=== PATIENT | male | born 1935 | race Caucasian/White ===

== ENCOUNTER 2018-11-12 14:40 | Inpatient (IN) | payer MEDICARE, OTHER ==
[~2018-11-12] VITALS: Ht 167.6 cm; Wt 59.0 kg
[~2018-11-12 14:40] MED LIST: ASPIRIN81 MG PO; EQ OMEPRAZOLE20 MG PO; LIPITOR10 M1 PO; LOPRESSOR25 M1 PO; PROSCAR5 MG PO; REMERON7.5 MG PO
[2018-11-12 15:44] LABS: HEMATOCRIT 32.2 % (39.0-50.0); HEMOGLOBIN 10.3 g/dl (14.0-18.0); IMMATURE GRANULOCYTES 0.4 % (0.0-5.0); MEAN CELL VOLUME 96.1 fL CALC (80.0-100.0); MEAN CORPUSCULAR HGB 30.7 pG CALC (26.0-32.0); NEUT# 4.31 thou/uL (1.82-7.42); RED BLOOD COUNT 3.35 mill/uL (4.70-6.10)
[2018-11-12 15:55] LABS: BILIRUBIN, TOTAL 0.7 mg/dL (0.0-1.4); CREATININE 2.1 mg/dL (0.7-1.3); POTASSIUM 4.8 mmol/l (3.5-5.1)
[2018-11-12] MEDS ORDERED: CARAFATE PO (17:42)
[2018-11-12] MEDS ORDERED: TYLENOL325 MG PO (17:51)
[2018-11-12] MEDS ORDERED: TUMS500 MG PO (17:51)
[2018-11-12 18:35] VITALS: BP 140/70
[2018-11-12 20:26] VITALS: BP 146/69
[2018-11-12 23:52] LABS: URINE BILIRUBIN - DIPSTICK NEGATIVE (NEGATIVE); URINE BLOOD DIPSTICK TRACE-INTACT (NEGATIVE); URINE COLOR YELLOW; URINE GLUCOSE - DIPSTICK NEGATIVE (NEGATIVE); URINE KETONE NEGATIVE (NEGATIVE); URINE NITRITE - DIPSTICK NEGATIVE (Negative); URINE PH 5.5 (4.5-8.0); URINE PROTEIN - DIPSTICK TRACE mg/dL (NEG-TRACE); URINE UROBILINOGEN - DIPSTICK 0.2 E.U./dL (0.2)
[2018-11-12 23:53] LABS: URINE LEUK ESTERASE MODERATE (NEGATIVE)
[2018-11-12 23:54] LABS: URINE BACTERIA FEW hpf; URINE EPITHELIAL CELLS MANY EPI/hpf (0-FEW); URINE RBC 0-2 RBC/hpf (0-5)
[2018-11-13] VITALS (7 sets, daily range): BP systolic 95–123; BP diastolic 45–74
[2018-11-13 08:25] LABS: HEMATOCRIT 29.3 % (39.0-50.0); HEMOGLOBIN 9.4 g/dl (14.0-18.0); IMMATURE GRANULOCYTES 0.3 % (0.0-5.0); MEAN CELL VOLUME 96.1 fL CALC (80.0-100.0); MEAN CORPUSCULAR HGB 30.8 pG CALC (26.0-32.0); MEAN CORPUSCULAR HGB CONC 32.1 g/L CALC (32.0-36.0); NEUT# 4.61 thou/uL (1.82-7.42); RED BLOOD COUNT 3.05 mill/uL (4.70-6.10); RED CELL DISTRI WIDTH 17.3 % (11.5-15.5)
[2018-11-13 08:49] LABS: ALBUMIN 2.5 g/dL (3.2-5.0); BILIRUBIN, TOTAL 0.8 mg/dL (0.0-1.4); CREATININE 2.1 mg/dL (0.7-1.3); MAGNESIUM 1.5 mg/dL (1.6-2.3); POTASSIUM 4.4 mmol/l (3.5-5.1); TOTAL PROTEIN 5.4 g/dL (6.3-8.2)
[2018-11-14 03:45] VITALS: BP 134/64
[2018-11-14 09:27] VITALS: BP 126/61
[2018-11-14 11:08] VITALS: BP 120/57
[2018-11-14 16:24] VITALS: BP 120/66
[2018-11-14 19:26] VITALS: BP 129/64
[2018-11-15] VITALS (12 sets, daily range): BP systolic 116–179; BP diastolic 62–87
[2018-11-15 07:12] LABS: HEMATOCRIT 29.3 % (39.0-50.0); HEMOGLOBIN 9.5 g/dl (14.0-18.0); IMMATURE GRANULOCYTES 0.3 % (0.0-5.0); MEAN CELL VOLUME 96.7 fL CALC (80.0-100.0); MEAN CORPUSCULAR HGB 31.4 pG CALC (26.0-32.0); MEAN CORPUSCULAR HGB CONC 32.4 g/L CALC (32.0-36.0); NEUT# 3.68 thou/uL (1.82-7.42); RED BLOOD COUNT 3.03 mill/uL (4.70-6.10); RED CELL DISTRI WIDTH 16.6 % (11.5-15.5)
[2018-11-15 07:22] LABS: ALBUMIN 2.5 g/dL (3.2-5.0); CREATININE 2.2 mg/dL (0.7-1.3); POTASSIUM 4.4 mmol/l (3.5-5.1); TOTAL PROTEIN 5.4 g/dL (6.3-8.2)
[2018-11-15 07:24] LABS: BILIRUBIN, TOTAL 0.4 mg/dL (0.0-1.4)
[2018-11-16 00:15] VITALS: BP 136/57
[2018-11-16 04:19] VITALS: BP 155/72
[2018-11-16 08:15] VITALS: BP 163/77
[2018-11-16 10:33] LABS: HEMOGLOBIN 10.1 g/dl (14.0-18.0); IMMATURE GRANULOCYTES 0.5 % (0.0-5.0); MEAN CELL VOLUME 97.3 fL CALC (80.0-100.0); MEAN CORPUSCULAR HGB 30.7 pG CALC (26.0-32.0); MEAN CORPUSCULAR HGB CONC 31.6 g/L CALC (32.0-36.0); NEUT# 3.77 thou/uL (1.82-7.42); RED BLOOD COUNT 3.29 mill/uL (4.70-6.10); RED CELL DISTRI WIDTH 16.2 % (11.5-15.5)
[2018-11-16 10:55] LABS: CREATININE 1.9 mg/dL (0.7-1.3); POTASSIUM 4.3 mmol/l (3.5-5.1)
[2018-11-16 11:26] VITALS: BP 164/75
[2018-11-16 15:10] VITALS: BP 133/58
[2018-11-16 19:10] VITALS: BP 124/62
[2018-11-17] VITALS (9 sets, daily range): BP systolic 128–148; BP diastolic 59–80
[2018-11-17 05:47] LABS: HEMATOCRIT 27.4 % (39.0-50.0); HEMOGLOBIN 8.9 g/dl (14.0-18.0); IMMATURE GRANULOCYTES 0.2 % (0.0-5.0); MEAN CELL VOLUME 95.5 fL CALC (80.0-100.0); MEAN CORPUSCULAR HGB CONC 32.5 g/L CALC (32.0-36.0); NEUT# 2.41 thou/uL (1.82-7.42); RED BLOOD COUNT 2.87 mill/uL (4.70-6.10); RED CELL DISTRI WIDTH 16.2 % (11.5-15.5)
[2018-11-17 05:58] LABS: ALBUMIN 2.5 g/dL (3.2-5.0); BILIRUBIN, TOTAL 0.3 mg/dL (0.0-1.4); POTASSIUM 3.9 mmol/l (3.5-5.1); TOTAL PROTEIN 5.3 g/dL (6.3-8.2)
[2018-11-18] VITALS (7 sets, daily range): BP systolic 138–178; BP diastolic 62–90
[2018-11-18 06:20] LABS: IMMATURE GRANULOCYTES 0.2 % (0.0-5.0); MEAN CELL VOLUME 91.3 fL CALC (80.0-100.0); MEAN CORPUSCULAR HGB 29.8 pG CALC (26.0-32.0); MEAN CORPUSCULAR HGB CONC 32.7 g/L CALC (32.0-36.0); NEUT# 2.81 thou/uL (1.82-7.42); RED BLOOD COUNT 3.92 mill/uL (4.70-6.10); RED CELL DISTRI WIDTH 17.9 % (11.5-15.5)
[2018-11-18 06:26] LABS: HEMATOCRIT 35.8 % (39.0-50.0); HEMOGLOBIN 11.7 g/dl (14.0-18.0)
[2018-11-18 06:28] LABS: POTASSIUM 3.7 mmol/l (3.5-5.1)
[2018-11-19] VITALS (9 sets, daily range): BP systolic 139–170; BP diastolic 70–87
[2018-11-19 05:43] LABS: HEMATOCRIT 36.3 % (39.0-50.0); HEMOGLOBIN 11.9 g/dl (14.0-18.0); IMMATURE GRANULOCYTES 0.2 % (0.0-5.0); MEAN CELL VOLUME 92.1 fL CALC (80.0-100.0); MEAN CORPUSCULAR HGB 30.2 pG CALC (26.0-32.0); MEAN CORPUSCULAR HGB CONC 32.8 g/L CALC (32.0-36.0); NEUT# 2.67 thou/uL (1.82-7.42); RED BLOOD COUNT 3.94 mill/uL (4.70-6.10); RED CELL DISTRI WIDTH 17.2 % (11.5-15.5)
[2018-11-19 06:10] LABS: ALBUMIN 2.8 g/dL (3.2-5.0); BILIRUBIN, TOTAL 0.4 mg/dL (0.0-1.4); CREATININE 1.9 mg/dL (0.7-1.3); POTASSIUM 3.8 mmol/l (3.5-5.1); TOTAL PROTEIN 5.9 g/dL (6.3-8.2)
[2018-11-20] VITALS (9 sets, daily range): BP systolic 124–171; BP diastolic 59–80
[2018-11-20] MEDS ORDERED: ROCEPHIN 2 GM2 GM IV (17:51)
== END 2018-11-20 19:37 | disposition home health service (06) | DRG 464 ==
LOC: ED 14:40 → ED-I 16:04 → ED 16:38 → MS2 16:39
PROVIDERS: ADMIT Internal Medicine Nephrology; ATTEND Internal Medicine Geriatric Medicine
PROC: 05H933Z Insertion of Infusion Device into Right Brachial Vein, Percutaneous Approach (ICD-10-PCS; 2018-11-14)
PROC: B54MZZA Ultrasonography of Right Upper Extremity Veins, Guidance (ICD-10-PCS; 2018-11-14)
PROC: 0QBP0ZZ Excision of Left Metatarsal, Open Approach (ICD-10-PCS; principal; 2018-11-15)
PROC: 0JBR0ZZ Excision of Left Foot Subcutaneous Tissue and Fascia, Open Approach (ICD-10-PCS; 2018-11-15)
PROC: 30233N1 Transfusion of Nonautologous Red Blood Cells into Peripheral Vein, Percutaneous Approach (ICD-10-PCS; 2018-11-17)
PROC: 30233N1 Transfusion of Nonautologous Red Blood Cells into Peripheral Vein, Percutaneous Approach (ICD-10-PCS; 2018-11-17)
DX: T87.44 Infection of amputation stump, left lower extremity (principal); L03.116 Cellulitis of left lower limb; E11.52 Type 2 diabetes mellitus with diabetic peripheral angiopathy with gangrene; I96 Gangrene, not elsewhere classified; C79.51 Secondary malignant neoplasm of bone; I12.9 Hypertensive chronic kidney disease with stage 1 through stage 4 chronic kidney disease, or unspecified chronic kidney disease; E11.22 Type 2 diabetes mellitus with diabetic chronic kidney disease; N18.3 Chronic kidney disease, stage 3 (moderate); E13.21 Other specified diabetes mellitus with diabetic nephropathy; D46.9 Myelodysplastic syndrome, unspecified; I25.10 Atherosclerotic heart disease of native coronary artery without angina pectoris; J44.9 Chronic obstructive pulmonary disease, unspecified; D64.9 Anemia, unspecified; M19.90 Unspecified osteoarthritis, unspecified site; C61 Malignant neoplasm of prostate; F03.90 Unspecified dementia, unspecified severity, without behavioral disturbance, psychotic disturbance, mood disturbance, and anxiety; B96.89 Other specified bacterial agents as the cause of diseases classified elsewhere; Y83.5 Amputation of limb(s) as the cause of abnormal reaction of the patient, or of later complication, without mention of misadventure at the time of the procedure; Z95.828 Presence of other vascular implants and grafts; Z86.73 Personal history of transient ischemic attack (TIA), and cerebral infarction without residual deficits; Z95.1 Presence of aortocoronary bypass graft; Z92.3 Personal history of irradiation
CPT/HCPCS: G0378; P9016

== ENCOUNTER 2019-01-10 06:11 | Day surgery (SDC) | payer MEDICARE, OTHER ==
[~2019-01-10] VITALS: Ht 167.6 cm; Wt 58.1 kg
[~2019-01-10 06:11] MED LIST changes: +CARAFATE PO; +FLUTAMIDE125 MG PO; +ROCEPHIN 2 GM2 GM IV; +TUMS500 MG PO; +TYLENOL325 MG PO
[2019-01-10 07:07] LABS: HEMATOCRIT 28.4 % (39.0-50.0); HEMOGLOBIN 8.5 g/dl (14.0-18.0); IMMATURE GRANULOCYTES 0.6 % (0.0-5.0); MEAN CELL VOLUME 100.4 fL CALC (80.0-100.0); MEAN CORPUSCULAR HGB CONC 29.9 g/L CALC (32.0-36.0); NEUT# 4.39 thou/uL (1.82-7.42); RED BLOOD COUNT 2.83 mill/uL (4.70-6.10); RED CELL DISTRI WIDTH 17.5 % (11.5-15.5)
[2019-01-10 09:17] VITALS: BP 140/66
[2019-01-10] MEDS ORDERED: PERCOCET 10/31 COMBO PO (09:44)
[2019-01-10] MEDS ORDERED: BACTRIM DS1 TAB PO (09:44)
== END 2019-01-10 09:54 | disposition home or self-care (01) ==
LOC: ORM 06:11
PROVIDERS: ATTEND Urology
PROC: 0TCB8ZZ Extirpation of Matter from Bladder, Via Natural or Artificial Opening Endoscopic (ICD-10-PCS; principal; 2019-01-10)
PROC: 0VB08ZZ Excision of Prostate, Via Natural or Artificial Opening Endoscopic (ICD-10-PCS; 2019-01-10)
DX: N40.1 Benign prostatic hyperplasia with lower urinary tract symptoms (principal); R33.8 Other retention of urine; N13.8 Other obstructive and reflux uropathy; N21.0 Calculus in bladder; I25.10 Atherosclerotic heart disease of native coronary artery without angina pectoris; I12.9 Hypertensive chronic kidney disease with stage 1 through stage 4 chronic kidney disease, or unspecified chronic kidney disease; N18.9 Chronic kidney disease, unspecified; C61 Malignant neoplasm of prostate; C79.51 Secondary malignant neoplasm of bone; Z95.1 Presence of aortocoronary bypass graft

== ENCOUNTER 2019-01-13 13:46 | Observation (INO) | payer MEDICARE, OTHER ==
[2019-01-13] VITALS (10 sets, daily range): BP systolic 124–166; BP diastolic 65–82
[~2019-01-13] VITALS: Ht 170.2 cm; Wt 56.2 kg
[~2019-01-13 13:46] MED LIST changes: +BACTRIM DS1 TAB PO; +PERCOCET 10/31 COMBO PO
[2019-01-13 17:06] LABS: URINE BILIRUBIN - DIPSTICK NEGATIVE (NEGATIVE); URINE BLOOD DIPSTICK LARGE (NEGATIVE); URINE COLOR YELLOW; URINE GLUCOSE - DIPSTICK NEGATIVE (NEGATIVE); URINE KETONE NEGATIVE (NEGATIVE); URINE LEUK ESTERASE SMALL (Negative); URINE NITRITE - DIPSTICK NEGATIVE (Negative); URINE PROTEIN - DIPSTICK 30 mg/dL (NEG-TRACE); URINE UROBILINOGEN - DIPSTICK 0.2 E.U./dL (0.2)
[2019-01-13 17:08] LABS: URINE CLARITY SL CLOUDY
[2019-01-13 17:25] LABS: URINE RBC 25-50 RBC/hpf (0-5)
[2019-01-14 03:30] VITALS: BP 134/61
[2019-01-14 05:39] LABS: HEMATOCRIT 31.1 % (39.0-50.0)
[2019-01-14 05:55] LABS: ALBUMIN 3.1 g/dL (3.2-5.0); BILIRUBIN, TOTAL 0.4 mg/dL (0.0-1.4); CREATININE 2.9 mg/dL (0.7-1.3); TOTAL PROTEIN 6.3 g/dL (6.3-8.2)
[2019-01-14 06:05] LABS: POTASSIUM 5.4 mmol/l (3.5-5.1)
[2019-01-14 07:31] VITALS: BP 152/67
[2019-01-14 14:55] VITALS: BP 125/64
== END 2019-01-14 14:45 | disposition home health service (06) ==
LOC: MS2 13:46
PROVIDERS: ADMIT Internal Medicine Geriatric Medicine; ATTEND Internal Medicine Geriatric Medicine
PROC: 30233N1 Transfusion of Nonautologous Red Blood Cells into Peripheral Vein, Percutaneous Approach (ICD-10-PCS; principal; 2019-01-13)
PROC: 30233N1 Transfusion of Nonautologous Red Blood Cells into Peripheral Vein, Percutaneous Approach (ICD-10-PCS; 2019-01-13)
PROC: 0T9B70Z Drainage of Bladder with Drainage Device, Via Natural or Artificial Opening (ICD-10-PCS; 2019-01-13)
DX: D64.9 Anemia, unspecified (principal); D46.9 Myelodysplastic syndrome, unspecified; C61 Malignant neoplasm of prostate; C79.51 Secondary malignant neoplasm of bone; I25.10 Atherosclerotic heart disease of native coronary artery without angina pectoris; I73.9 Peripheral vascular disease, unspecified; I12.9 Hypertensive chronic kidney disease with stage 1 through stage 4 chronic kidney disease, or unspecified chronic kidney disease; N18.9 Chronic kidney disease, unspecified; J44.9 Chronic obstructive pulmonary disease, unspecified; F03.90 Unspecified dementia, unspecified severity, without behavioral disturbance, psychotic disturbance, mood disturbance, and anxiety; Z95.828 Presence of other vascular implants and grafts; Z95.1 Presence of aortocoronary bypass graft; Z89.422 Acquired absence of other left toe(s); Z86.73 Personal history of transient ischemic attack (TIA), and cerebral infarction without residual deficits
CPT/HCPCS: A9503; P9016

== ENCOUNTER 2019-02-17 14:35 | Observation (INO) | payer MEDICARE, OTHER ==
[~2019-02-17] VITALS: Ht 167.6 cm; Wt 56.2 kg
[2019-02-17 16:50] LABS: URINE BILIRUBIN - DIPSTICK NEGATIVE (NEGATIVE); URINE BLOOD DIPSTICK LARGE (NEGATIVE); URINE COLOR YELLOW; URINE GLUCOSE - DIPSTICK NEGATIVE (NEGATIVE); URINE KETONE NEGATIVE (NEGATIVE); URINE NITRITE - DIPSTICK NEGATIVE (Negative); URINE PH 5.5 (4.5-8.0); URINE PROTEIN - DIPSTICK 100 mg/dL (NEG-TRACE); URINE SPECIFIC GRAVITY >=1.030; URINE UROBILINOGEN - DIPSTICK 0.2 E.U./dL (0.2)
[2019-02-17 16:53] LABS: ALBUMIN 3.7 g/dL (3.2-5.0); BILIRUBIN, TOTAL 0.3 mg/dL (0.0-1.4); CREATININE 4.9 mg/dL (0.7-1.3)
[2019-02-17 16:55] LABS: URINE LEUK ESTERASE MODERATE (NEGATIVE)
[2019-02-17 16:56] LABS: URINE WBC 50-100 WBC/hpf (0-5)
[2019-02-17 16:59] LABS: POTASSIUM 5.9 mmol/l (3.5-5.1)
[2019-02-17] MEDS ORDERED: ASPIRIN81 MG PO (17:16)
[2019-02-17] MEDS ORDERED: LIPITOR10 M1 PO (17:16)
[2019-02-17] MEDS ORDERED: REMERON15 MG PO (17:17)
[2019-02-17] MEDS ORDERED: OMEPRAZOLE20 M2 PO (17:17)
[2019-02-17] MEDS ORDERED: PROSCAR5 MG PO (17:17)
[2019-02-17] MEDS ORDERED: METOPROL TAR25 M1 PO (17:18)
[2019-02-17] MEDS ORDERED: CARAFATE1 GM PO (17:18)
[2019-02-17] MEDS ORDERED: DRONABINOL5 MG PO ×2 (17:19→20:36)
[2019-02-17 19:15] VITALS: BP 168/72
[2019-02-17] MEDS ORDERED: PREDNISONE5 MG PO (20:39)
[2019-02-17] MEDS ORDERED: [UNRECOGNIZED DRUG - OTHER] PO (20:39)
[2019-02-17 21:15] VITALS: BP 135/58
[2019-02-17 21:34] LABS: CREATININE 4.8 mg/dL (0.7-1.3)
[2019-02-17 21:35] LABS: POTASSIUM 5.6 mmol/l (3.5-5.1)
[2019-02-17 23:30] VITALS: BP 136/68
[2019-02-18] VITALS (8 sets, daily range): BP systolic 94–160; BP diastolic 44–72
[2019-02-18] MEDS ORDERED: ACETAMINOP160 MG/5 M PO (04:40)
[2019-02-18 05:21] LABS: HEMATOCRIT 22.6 % (39.0-50.0); HEMOGLOBIN 7.1 g/dl (14.0-18.0); MEAN CORPUSCULAR HGB 31.4 pG CALC (26.0-32.0); MEAN CORPUSCULAR HGB CONC 31.4 g/L CALC (32.0-36.0); RED BLOOD COUNT 2.26 mill/uL (4.70-6.10); RED CELL DISTRI WIDTH 16.6 % (11.5-15.5)
[2019-02-18 05:24] LABS: CREATININE 4.4 mg/dL (0.7-1.3); POTASSIUM 4.7 mmol/l (3.5-5.1)
[2019-02-19] VITALS (7 sets, daily range): BP systolic 98–150; BP diastolic 44–74
[2019-02-19 05:16] LABS: HEMATOCRIT 24.2 % (39.0-50.0); HEMOGLOBIN 7.9 g/dl (14.0-18.0); MEAN CELL VOLUME 94.9 fL CALC (80.0-100.0); MEAN CORPUSCULAR HGB CONC 32.6 g/L CALC (32.0-36.0); RED BLOOD COUNT 2.55 mill/uL (4.70-6.10); RED CELL DISTRI WIDTH 18.8 % (11.5-15.5)
[2019-02-19 05:31] LABS: CREATININE 4.4 mg/dL (0.7-1.3); POTASSIUM 4.7 mmol/l (3.5-5.1)
[2019-02-20] VITALS (9 sets, daily range): BP systolic 127–183; BP diastolic 61–83
[2019-02-20 05:25] LABS: HEMATOCRIT 26.3 % (39.0-50.0); HEMOGLOBIN 8.6 g/dl (14.0-18.0); IMMATURE GRANULOCYTES 0.6 % (0.0-5.0); MEAN CELL VOLUME 94.9 fL CALC (80.0-100.0); MEAN CORPUSCULAR HGB CONC 32.7 g/L CALC (32.0-36.0); NEUT# 6.08 thou/uL (1.82-7.42); RED BLOOD COUNT 2.77 mill/uL (4.70-6.10); RED CELL DISTRI WIDTH 17.8 % (11.5-15.5)
[2019-02-20 05:43] LABS: CREATININE 3.7 mg/dL (0.7-1.3); MAGNESIUM 1.7 mg/dL (1.6-2.3); POTASSIUM 3.9 mmol/l (3.5-5.1)
[2019-02-21 04:27] VITALS: BP 150/70
[2019-02-21 05:41] LABS: HEMATOCRIT 29.3 % (39.0-50.0); HEMOGLOBIN 9.6 g/dl (14.0-18.0)
[2019-02-21 06:04] LABS: CREATININE 3.5 mg/dL (0.7-1.3); MAGNESIUM 1.5 mg/dL (1.6-2.3); POTASSIUM 4.1 mmol/l (3.5-5.1)
[2019-02-21 06:05] LABS: ALBUMIN 3.1 g/dL (3.2-5.0); CREATININE 3.5 mg/dL (0.7-1.3); POTASSIUM 4.1 mmol/l (3.5-5.1)
[2019-02-21 07:00] VITALS: BP 159/71
[2019-02-21 10:59] VITALS: BP 127/59
[2019-02-21] MEDS ORDERED: SODIUM BICARBI650 MG PO (11:40)
[2019-02-21] MEDS ORDERED: CIPROFLOXACN500 MG PO (11:44)
== END 2019-02-21 13:55 ==
LOC: ED 14:35 → ED-I 15:58 → ED 16:11 → ICU 16:12 → MS2 02-19 05:20
PROVIDERS: Internal Medicine Nephrology; Nurse Practitioner Family; ADMIT Internal Medicine; ATTEND Internal Medicine
PROC: 0T9B70Z Drainage of Bladder with Drainage Device, Via Natural or Artificial Opening (ICD-10-PCS; principal; 2019-02-17)
PROC: 30233N1 Transfusion of Nonautologous Red Blood Cells into Peripheral Vein, Percutaneous Approach (ICD-10-PCS; 2019-02-18)
PROC: 3E02340 Introduction of Influenza Vaccine into Muscle, Percutaneous Approach (ICD-10-PCS; 2019-02-19)
DX: N17.9 Acute kidney failure, unspecified (principal); E86.0 Dehydration; E87.5 Hyperkalemia; N39.0 Urinary tract infection, site not specified; I13.0 Hypertensive heart and chronic kidney disease with heart failure and stage 1 through stage 4 chronic kidney disease, or unspecified chronic kidney disease; N18.4 Chronic kidney disease, stage 4 (severe); I50.9 Heart failure, unspecified; C61 Malignant neoplasm of prostate; C79.51 Secondary malignant neoplasm of bone; E87.2 Acidosis; I25.10 Atherosclerotic heart disease of native coronary artery without angina pectoris; F03.90 Unspecified dementia, unspecified severity, without behavioral disturbance, psychotic disturbance, mood disturbance, and anxiety; E46 Unspecified protein-calorie malnutrition; L97.528 Non-pressure chronic ulcer of other part of left foot with other specified severity; E78.5 Hyperlipidemia, unspecified; D46.9 Myelodysplastic syndrome, unspecified; R00.1 Bradycardia, unspecified; I73.9 Peripheral vascular disease, unspecified; D63.1 Anemia in chronic kidney disease; D64.81 Anemia due to antineoplastic chemotherapy; T45.1X5A Adverse effect of antineoplastic and immunosuppressive drugs, initial encounter; B96.5 Pseudomonas (aeruginosa) (mallei) (pseudomallei) as the cause of diseases classified elsewhere; Z68.1 Body mass index [BMI] 19.9 or less, adult; Z89.422 Acquired absence of other left toe(s); Z95.1 Presence of aortocoronary bypass graft; Z86.73 Personal history of transient ischemic attack (TIA), and cerebral infarction without residual deficits; Z95.828 Presence of other vascular implants and grafts; Z79.899 Other long term (current) drug therapy; Z23 Encounter for immunization
CPT/HCPCS: J0692; J3475; P9016

== ENCOUNTER 2019-03-07 17:30 | Inpatient (IN) | payer MEDICARE, OTHER ==
[~2019-03-07] VITALS: Ht 167.6 cm; Wt 59.9 kg
[~2019-03-07 17:30] MED LIST changes: +ACETAMINOP160 MG/5 M PO; +CARAFATE1 GM PO; +CIPROFLOXACN500 MG PO; +DRONABINOL5 MG PO; +METOPROL TAR25 M1 PO; +OMEPRAZOLE20 M2 PO; +PREDNISONE5 MG PO; +REMERON15 MG PO; +SODIUM BICARBI650 MG PO; +[UNRECOGNIZED DRUG - OTHER] PO
[2019-03-07 18:16] LABS: IMMATURE GRANULOCYTES 0.2 % (0.0-5.0); MEAN CELL VOLUME 100.5 fL CALC (80.0-100.0); MEAN CORPUSCULAR HGB 31.6 pG CALC (26.0-32.0); MEAN CORPUSCULAR HGB CONC 31.4 g/L CALC (32.0-36.0); NEUT# 3.18 thou/uL (1.82-7.42); RED BLOOD COUNT 2.09 mill/uL (4.70-6.10); RED CELL DISTRI WIDTH 16.9 % (11.5-15.5)
[2019-03-07 18:19] LABS: HEMOGLOBIN 6.6 g/dl (14.0-18.0)
[2019-03-07 18:32] LABS: ACT PARTIAL THROMBO TIME 26.5 SECONDS (20.0-32.5); PROTHROMBIN TIME 10.3 SECONDS (9.0-12.5)
[2019-03-07 18:45] LABS: ALBUMIN 3.3 g/dL (3.2-5.0); BILIRUBIN, TOTAL 0.2 mg/dL (0.0-1.4); TOTAL PROTEIN 6.5 g/dL (6.3-8.2)
[2019-03-07 18:52] LABS: CREATININE 5.4 mg/dL (0.7-1.3); POTASSIUM 5.4 mmol/l (3.5-5.1)
[2019-03-07 19:55] VITALS: BP 149/67
[2019-03-07 20:31] VITALS: BP 146/65
[2019-03-07 20:50] VITALS: BP 153/59
[2019-03-07 21:16] VITALS: BP 147/64
[2019-03-07 23:27] VITALS: BP 152/71
[2019-03-07 23:45] VITALS: BP 135/71
[2019-03-08] VITALS (9 sets, daily range): BP systolic 134–162; BP diastolic 57–85
[2019-03-08 05:54] LABS: ALBUMIN 3.2 g/dL (3.2-5.0); POTASSIUM 5.1 mmol/l (3.5-5.1); TOTAL PROTEIN 6.3 g/dL (6.3-8.2)
[2019-03-08 06:11] LABS: BILIRUBIN, TOTAL 0.4 mg/dL (0.0-1.4)
[2019-03-08 06:12] LABS: CREATININE 5.3 mg/dL (0.7-1.3)
[2019-03-08 08:29] LABS: MEAN CORPUSCULAR HGB 30.2 pG CALC (26.0-32.0); RED BLOOD COUNT 3.24 mill/uL (4.70-6.10); RED CELL DISTRI WIDTH 17.9 % (11.5-15.5)
[2019-03-08 08:31] LABS: HEMATOCRIT 30.6 % (39.0-50.0); HEMOGLOBIN 9.8 g/dl (14.0-18.0); MEAN CELL VOLUME 94.4 fL CALC (80.0-100.0)
[2019-03-09] VITALS (7 sets, daily range): BP systolic 129–156; BP diastolic 55–76
[2019-03-09 05:32] LABS: HEMATOCRIT 27.1 % (39.0-50.0); HEMOGLOBIN 8.7 g/dl (14.0-18.0); IMMATURE GRANULOCYTES 0.3 % (0.0-5.0); MEAN CELL VOLUME 95.1 fL CALC (80.0-100.0); MEAN CORPUSCULAR HGB 30.5 pG CALC (26.0-32.0); MEAN CORPUSCULAR HGB CONC 32.1 g/L CALC (32.0-36.0); NEUT# 2.95 thou/uL (1.82-7.42); RED BLOOD COUNT 2.85 mill/uL (4.70-6.10); RED CELL DISTRI WIDTH 17.9 % (11.5-15.5)
[2019-03-09 05:36] LABS: CREATININE 4.9 mg/dL (0.7-1.3); MAGNESIUM 1.5 mg/dL (1.6-2.3); POTASSIUM 4.6 mmol/l (3.5-5.1)
[2019-03-10] VITALS (8 sets, daily range): BP systolic 150–183; BP diastolic 58–87
[2019-03-10 07:57] LABS: HEMATOCRIT 29.7 % (39.0-50.0); HEMOGLOBIN 9.4 g/dl (14.0-18.0); MEAN CELL VOLUME 94.3 fL CALC (80.0-100.0); MEAN CORPUSCULAR HGB 29.8 pG CALC (26.0-32.0); MEAN CORPUSCULAR HGB CONC 31.6 g/L CALC (32.0-36.0); RED BLOOD COUNT 3.15 mill/uL (4.70-6.10); RED CELL DISTRI WIDTH 17.6 % (11.5-15.5)
[2019-03-10 10:23] LABS: CREATININE 4.9 mg/dL (0.7-1.3); POTASSIUM 4.7 mmol/l (3.5-5.1)
[2019-03-11 00:07] VITALS: BP 150/67
[2019-03-11 01:16] LABS: URINE BILIRUBIN - DIPSTICK NEGATIVE (NEGATIVE); URINE BLOOD DIPSTICK SMALL (NEGATIVE); URINE COLOR YELLOW; URINE GLUCOSE - DIPSTICK NEGATIVE (NEGATIVE); URINE KETONE NEGATIVE (NEGATIVE); URINE PROTEIN - DIPSTICK 100 mg/dL (NEG-TRACE); URINE SPECIFIC GRAVITY 1.015; URINE UROBILINOGEN - DIPSTICK 0.2 E.U./dL (0.2)
[2019-03-11 01:25] LABS: URINE LEUK ESTERASE SMALL (NEGATIVE); URINE NITRITE - DIPSTICK NEGATIVE (Negative)
[2019-03-11 01:26] LABS: URINE BACTERIA MODERATE hpf; URINE EPITHELIAL CELLS FEW EPI/hpf (0-FEW)
[2019-03-11 01:27] LABS: URINE YEAST FEW hpf
[2019-03-11 04:40] VITALS: BP 172/76
[2019-03-11 05:11] LABS: HEMATOCRIT 31.7 % (39.0-50.0); HEMOGLOBIN 9.8 g/dl (14.0-18.0); IMMATURE GRANULOCYTES 0.3 % (0.0-5.0); MEAN CELL VOLUME 95.5 fL CALC (80.0-100.0); MEAN CORPUSCULAR HGB 29.5 pG CALC (26.0-32.0); MEAN CORPUSCULAR HGB CONC 30.9 g/L CALC (32.0-36.0); NEUT# 3.9 thou/uL (1.82-7.42); RED BLOOD COUNT 3.32 mill/uL (4.70-6.10); RED CELL DISTRI WIDTH 17.2 % (11.5-15.5)
[2019-03-11 05:18] LABS: ALBUMIN 3.1 g/dL (3.2-5.0); BUN 55 mg/dL (8-23); CARBON DIOXIDE 17 mmol/l (22-30); CHLORIDE 117 mmol/l (95-108); CREATININE 4.7 mg/dL (0.7-1.3); GFR 12 ML/MIN (>=60 (CALC)); GFR FOR AFR.AMER. 15 ML/MIN (>=60 (CALC)); SODIUM 143 mmol/l (137-146)
[2019-03-11 05:23] LABS: POTASSIUM 5.2 mmol/l (3.5-5.1)
[2019-03-11 07:28] VITALS: BP 153/81
[2019-03-11 11:02] VITALS: BP 166/76
[2019-03-11] MEDS ORDERED: MONUROL PO (11:22)
== END 2019-03-11 13:20 | disposition home health service (06) | DRG 683 ==
LOC: ED 17:30 → ED-I 19:18 → ED 19:35 → MS2 19:36
PROVIDERS: Family Medicine; Internal Medicine; Internal Medicine Nephrology; Nurse Practitioner Family; ADMIT Internal Medicine; ATTEND Internal Medicine
PROC: 30233N1 Transfusion of Nonautologous Red Blood Cells into Peripheral Vein, Percutaneous Approach (ICD-10-PCS; principal; 2019-03-07)
DX: N17.9 Acute kidney failure, unspecified (principal); N39.0 Urinary tract infection, site not specified; E46 Unspecified protein-calorie malnutrition; C79.51 Secondary malignant neoplasm of bone; E87.2 Acidosis; I12.9 Hypertensive chronic kidney disease with stage 1 through stage 4 chronic kidney disease, or unspecified chronic kidney disease; E11.22 Type 2 diabetes mellitus with diabetic chronic kidney disease; N18.4 Chronic kidney disease, stage 4 (severe); Z68.21 Body mass index [BMI] 21.0-21.9, adult; I25.10 Atherosclerotic heart disease of native coronary artery without angina pectoris; Z86.73 Personal history of transient ischemic attack (TIA), and cerebral infarction without residual deficits; Z95.1 Presence of aortocoronary bypass graft; B96.20 Unspecified Escherichia coli [E. coli] as the cause of diseases classified elsewhere; Z92.21 Personal history of antineoplastic chemotherapy; Z92.3 Personal history of irradiation; E87.5 Hyperkalemia; D63.1 Anemia in chronic kidney disease; D63.0 Anemia in neoplastic disease; R33.9 Retention of urine, unspecified; Z66 Do not resuscitate; E86.9 Volume depletion, unspecified; Z85.46 Personal history of malignant neoplasm of prostate
CPT/HCPCS: J0885; J3475; P9016; Q3014

== ENCOUNTER 2019-05-23 | Emergency (ER) | payer MEDICARE, OTHER ==
[~2019-05-23] MED LIST changes: +MONUROL PO
[2019-05-23 20:57] LABS: HEMATOCRIT 34.7 % (39.0-50.0); HEMOGLOBIN 10.5 g/dl (14.0-18.0); IMMATURE GRANULOCYTES 1.1 % (0.0-5.0); MEAN CELL VOLUME 105.5 fL CALC (80.0-100.0); MEAN CORPUSCULAR HGB 31.9 pG CALC (26.0-32.0); MEAN CORPUSCULAR HGB CONC 30.3 g/L CALC (32.0-36.0); NEUT# 19.91 thou/uL (1.82-7.42); RED BLOOD COUNT 3.29 mill/uL (4.70-6.10); RED CELL DISTRI WIDTH 18.8 % (11.5-15.5)
[2019-05-23 21:07] LABS: ALBUMIN 4.4 g/dL (3.2-5.0); MAGNESIUM 1.6 mg/dL (1.6-2.3); TOTAL PROTEIN 8.9 g/dL (6.3-8.2)
[2019-05-23 21:20] LABS: BILIRUBIN, TOTAL 0.5 mg/dL (0.0-1.4); CREATININE 10.4 mg/dL (0.7-1.3); POTASSIUM 6.4 mmol/l (3.5-5.1)
[2019-05-23 23:31] LABS: URINE BILIRUBIN - DIPSTICK NEGATIVE (NEGATIVE); URINE COLOR YELLOW; URINE GLUCOSE - DIPSTICK NEGATIVE (NEGATIVE); URINE KETONE Negative (NEGATIVE); URINE PROTEIN - DIPSTICK 100 mg/dL (NEG-TRACE)
[2019-05-23 23:32] LABS: URINE BLOOD DIPSTICK LARGE (NEGATIVE); URINE LEUK ESTERASE LARGE (NEGATIVE); URINE NITRITE - DIPSTICK NEGATIVE (Negative); URINE UROBILINOGEN - DIPSTICK 0.2 E.U./dL (0.2)
[2019-05-23 23:35] LABS: URINE BACTERIA MANY hpf; URINE WBC 50-100 WBC/hpf (0-5)
== END 2019-05-24 01:05 | disposition short-term general hospital (02) ==
PROVIDERS: Family Medicine
DX: N17.9 Acute kidney failure, unspecified (principal); R62.7 Adult failure to thrive; I12.9 Hypertensive chronic kidney disease with stage 1 through stage 4 chronic kidney disease, or unspecified chronic kidney disease; N18.9 Chronic kidney disease, unspecified; N39.0 Urinary tract infection, site not specified; F03.90 Unspecified dementia, unspecified severity, without behavioral disturbance, psychotic disturbance, mood disturbance, and anxiety; C61 Malignant neoplasm of prostate; C79.51 Secondary malignant neoplasm of bone; B96.1 Klebsiella pneumoniae [K. pneumoniae] as the cause of diseases classified elsewhere; Z95.1 Presence of aortocoronary bypass graft; Z86.73 Personal history of transient ischemic attack (TIA), and cerebral infarction without residual deficits; E86.0 Dehydration

== ENCOUNTER 2019-11-27 13:05 | Emergency (ER) | payer MEDICARE, OTHER ==
[~2019-11-27] VITALS: Ht 167.6 cm; Wt 68.0 kg
[2019-11-27 14:58] LABS: HEMATOCRIT 43.7 % (39.0-50.0); HEMOGLOBIN 12.8 g/dl (14.0-18.0); IMMATURE GRANULOCYTES 0.5 % (0.0-5.0); MEAN CELL VOLUME 104.3 fL CALC (80.0-100.0); MEAN CORPUSCULAR HGB 30.5 pG CALC (26.0-32.0); MEAN CORPUSCULAR HGB CONC 29.3 g/dL CAL (32.0-36.0); NEUT# 19.29 thou/uL (1.82-7.42); RED BLOOD COUNT 4.19 mill/uL (4.70-6.10); RED CELL DISTRI WIDTH 15.8 % (11.5-15.5)
[2019-11-27 15:07] LABS: ALBUMIN 4.1 g/dL (3.2-5.0); ALKALINE PHOSPHATASE 139 u/l (38-126); ANION GAP 18 (6-22 (CALC)); BILIRUBIN, TOTAL 0.4 mg/dL (0.0-1.4); BUN 29 mg/dL (8-23); CARBON DIOXIDE 26 mmol/l (22-30); CHLORIDE 100 mmol/l (95-108); INTERNATIONAL NORMALIZED RATIO 1.1 RATIO (0.7-1.3); POTASSIUM 4.1 mmol/l (3.5-5.1); PROTHROMBIN TIME 10.6 SECONDS (9.0-12.5); SGOT/AST 40 u/l (19-48); SODIUM 139 mmol/l (137-146); TOTAL PROTEIN 7.3 g/dL (6.3-8.2)
[2019-11-27 15:10] LABS: BUN/CREATININE RATIO 6 (12-20 (CALC)); GFR 11 ML/MIN (>=60 (CALC)); GFR FOR AFR.AMER. 13 ML/MIN (>=60 (CALC))
[2019-11-27 15:11] LABS: CREATININE 5.1 mg/dL (0.7-1.3)
[2019-11-27 16:01] LABS: URINE BILIRUBIN - DIPSTICK NEGATIVE (NEGATIVE); URINE BLOOD DIPSTICK MODERATE (NEGATIVE); URINE COLOR YELLOW; URINE GLUCOSE - DIPSTICK NEGATIVE (NEGATIVE); URINE KETONE NEGATIVE (NEGATIVE); URINE NITRITE - DIPSTICK NEGATIVE (Negative); URINE PROTEIN - DIPSTICK 100 mg/dL (NEG-TRACE); URINE UROBILINOGEN - DIPSTICK 0.2 E.U./dL (0.2)
[2019-11-27 16:04] LABS: URINE LEUK ESTERASE MODERATE (NEGATIVE)
[2019-11-27 16:07] LABS: URINE BACTERIA FEW hpf; URINE WBC TNTC WBC/hpf (0-5)
[2019-11-27 19:19] VITALS: BP 145/66
== END 2019-11-27 19:40 | disposition short-term general hospital (02) ==
LOC: ED 13:05
PROVIDERS: Student in an Organized Health Care Education/Training Program
DX: A41.9 Sepsis, unspecified organism (principal); N39.0 Urinary tract infection, site not specified; F03.90 Unspecified dementia, unspecified severity, without behavioral disturbance, psychotic disturbance, mood disturbance, and anxiety; I12.0 Hypertensive chronic kidney disease with stage 5 chronic kidney disease or end stage renal disease; N18.6 End stage renal disease; B96.20 Unspecified Escherichia coli [E. coli] as the cause of diseases classified elsewhere; Z99.2 Dependence on renal dialysis; Z86.73 Personal history of transient ischemic attack (TIA), and cerebral infarction without residual deficits; Z95.1 Presence of aortocoronary bypass graft; Z20.828 Contact with and (suspected) exposure to other viral communicable diseases

== ENCOUNTER 2020-10-07 14:12 | Observation (INO) | payer MEDICARE, OTHER ==
[~2020-10-07] VITALS: Ht 167.6 cm; Wt 59.0 kg
[2020-10-07] VITALS (8 sets, daily range): BP systolic 146–166; BP diastolic 65–85
--- NOTE | 2020-10-07 14:15 | NUR ---
TO ROOM VIA WHEELCHAIR, ACCOMPANIED BY DAUGHTER.
[2020-10-07] MEDS ORDERED: ASPIRIN 81 LOW81 MG PO (14:28)
[2020-10-07] MEDS ORDERED: VITAMIN B-122500 MCG PO (14:29)
[2020-10-07] MEDS ORDERED: NORVASC5 M1 PO (14:30)
[2020-10-07] MEDS ORDERED: CALCITRIOL0.25 MC1 PO (14:30)
[2020-10-07] MEDS ORDERED: MIDODRINE10 MG PO (14:31)
[2020-10-07] MEDS ORDERED: VANCOMYCIN HCL125 M1 PO (14:32)
[2020-10-07] MEDS ORDERED: SEVELAMER HYDR800 MG PO (14:33)
[2020-10-07] MEDS ORDERED: [UNRECOGNIZED DRUG - OTHER] PO (14:38)
[2020-10-07 15:31] LABS: HEMATOCRIT 25.9 % (39.0-50.0); HEMOGLOBIN 7.2 g/dl (14.0-18.0); IMMATURE GRANULOCYTES 0.2 % (0.0-5.0); MEAN CORPUSCULAR HGB 28.3 pG CALC (26.0-32.0); MEAN CORPUSCULAR HGB CONC 27.8 g/dL CAL (32.0-36.0); NEUT# 2.37 thou/uL (1.82-7.42); RED BLOOD COUNT 2.54 mill/uL (4.70-6.10); RED CELL DISTRI WIDTH 21.5 % (11.5-15.5)
[2020-10-07 15:40] LABS: POTASSIUM 4.6 mmol/l (3.5-5.1)
[2020-10-07 15:50] LABS: ALBUMIN 2.9 g/dL (3.2-5.0); CREATININE 7.7 mg/dL (0.7-1.3); TOTAL PROTEIN 6.6 g/dL (6.3-8.2)
--- NOTE | 2020-10-07 16:00 | NUR ---
BLOOD CONCENT FORM SIGNED
--- NOTE | 2020-10-07 17:29 | NUR ---
BLOOD RUNNING WITHOUT S/Sx OF REACTIONS AT THIS TIME. PATIENT DENIES ANY FURTHER NEEDS CURRENTLY
--- NOTE | 2020-10-07 18:36 | NUR ---
CALL TO FLOOR FOR REPORT
--- NOTE | 2020-10-07 18:45 | NUR ---
REPORT CALLED TO FLOOR NURSE 272 EVY RN FOR TITLE COORDINATOR
--- NOTE | 2020-10-07 18:45 | NUR ---
REVIEVED REPORT FROM GIULIANA HOLLOWAY.
--- NOTE | 2020-10-07 18:56 | NUR ---
REPORT TO BRYCE GIORDANO
--- NOTE | 2020-10-07 19:30 | NUR ---
FIRST UNIT OF PRBS COMPLETED, NO REACTION NOTED. TRANSFERED TO [facility] VIA STRETCHER, NO C/O.
--- NOTE | 2020-10-07 19:40 | NUR ---
PT RECEIVED FROM ED TO ROOM 273. ARRIVES VIA STRETCHER ACCOMPANIED BY RN. PT AMBULATORY TO BED. GAIT UNSTEADY. PT DENIES PAIN AT THIS TIME. ORIENTED TO UNIT, ROOM, CALL DURAN, LIGHTS, TV. ICE WATER PROVIDED. CALL DURAN WITHIN REACH. AGREES TO CALL PRN.
--- NOTE | 2020-10-07 20:00 | NUR ---
PHYSICAL ASSESMENT COMPLETE. PT CURRENTLY DENIES PAIN OR DISCOMFORT. SCHEDULED MEDICATIONS AND PRN MEDICATION ADMINISTERED, SEE E-MAR. PT DENIES ANY NEEDS AT THIS TIME. PLAN OF CARE REVIEWED, PT DENIES QUESTIONS, VERBALIZES UNDERSTANDING. ITEMS WITHIN REACH, BED LOCKED IN LOW POSITION W/ BEDRAILS UP X2. CALL DURAN WITHIN REACH, AGREES TO CALL PRN.
--- NOTE | 2020-10-07 20:15 | NUR ---
PTTO [id number] UNITOF BLOO.WAITING FORCONSENT FORM TO BE SENT BY THE ED DEPT.
--- NOTE | 2020-10-07 20:15 | NUR ---
PM MEDICATION TO BE ADMINISTER AFTER COMPLITION OF BLOOD PRODUCTS.
--- NOTE | 2020-10-07 21:01 | NUR ---
PT IS RECEIVING BLOOD. PT IS TOLERATING PRECEDURE WELL. NURSE IS AT BEDSIDE CONTINUNG TO MONITOR.
--- NOTE | 2020-10-08 | NUR ---
PT LAYING IN BED WITH EYES CLOSED, APPEARS TO BE SLEEPING, APPEARS COMFORTABLE AND IN NO DISTRESS. RESPIRATIONS REGULAR AND UNLABORED. ITEMS REMAIN WITHIN REACH, CALL DURAN REMAINS WITHIN REACH. BED REMAINS LOCKED AND IN LOW POSITION WITH BEDRAILS UP X2. WILL CONTINUE TO MONITOR.
--- NOTE | 2020-10-08 03:45 | NUR ---
PT RESTING IN BED, NO SIGNS OF DISTRESS NOTED, RESP EVEN AND UNLABORED. PT VOICES NO NEEDS OR COMPLAINTS AT THIS TIME. CALL LIGHT IN REACH, CONTINUE TO MONITOR.
[2020-10-08 04:00] VITALS: BP 145/68
[2020-10-08 04:54] LABS: MEAN CELL VOLUME 101.3 fL CALC (80.0-100.0); MEAN CORPUSCULAR HGB CONC 28.6 g/dL CAL (32.0-36.0); RED BLOOD COUNT 3.72 mill/uL (4.70-6.10)
[2020-10-08 04:56] LABS: HEMATOCRIT 37.7 % (39.0-50.0); HEMOGLOBIN 10.8 g/dl (14.0-18.0)
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
[2020-10-08 08:00] VITALS: BP 147/68
--- NOTE | 2020-10-08 08:00 | NUR ---
ASSESSMENT IS COMPLETED: IV SITE IS FREE FROM REDNESS OR EDEMA. HR IS REG,PULSES ARE STRONG X4, ABD IS SOFT WITH ACTIVE BS. CONTINUE TO OBSERVE AND MONITOR.
[2020-10-08 09:13] VITALS: BP 147/68
--- NOTE | 2020-10-08 11:00 | NUR ---
PT TOOK IV SITE OUT., INQUIRED IF HE WAS GOING HOME ARPN SAID "YES". CALLED DAUGHTER AND LEFT A VOICE MAIL
--- NOTE | 2020-10-08 11:32 | NUR ---
CALLED HIS DAUGHTER RE: DISCHARGE WAITING FOR HER TO CALL BACK.
--- NOTE | 2020-10-08 12:09 | NUR ---
LOSS PREVENTION/SAFETY DISTRICT MANAGER CALLED AND WILL ASSOCIATE SPA DIRECTOR PT. WILL BRING HIM DOWN TO ER WITH DISCHARGE INSTRUCTIONS.
--- NOTE | 2020-10-08 12:34 | NUR ---
PT THEATER SET PRODUCTION DESIGNER HERE TO ROUTE DRIVER COIN MACHINES PT. WITH HIS WHEELCHAIR. ALL BELONGINGS AND INFORMATION FOR THE DISCHARGE SENT WITH PT. SIGNED BY THE CAREGIVER.
--- NOTE | 2020-10-08 12:36 | NUR ---
Discharge instructions given. Patient verbalizes understanding of same. Discharged in stable condition via Wheelchair to Home with family. All belongings sent with pt.
== END 2020-10-08 12:33 ==
LOC: ED 14:12 → ED-I 17:25 → ED 17:36 → MS2 17:37
PROVIDERS: Emergency Medicine; Nurse Practitioner; ADMIT Internal Medicine; ATTEND Internal Medicine
PROC: 30233N1 Transfusion of Nonautologous Red Blood Cells into Peripheral Vein, Percutaneous Approach (ICD-10-PCS; principal; 2020-10-07)
PROC: 30233N1 Transfusion of Nonautologous Red Blood Cells into Peripheral Vein, Percutaneous Approach (ICD-10-PCS; 2020-10-07)
DX: D64.9 Anemia, unspecified (principal); I12.0 Hypertensive chronic kidney disease with stage 5 chronic kidney disease or end stage renal disease; N18.6 End stage renal disease; A04.72 Enterocolitis due to Clostridium difficile, not specified as recurrent; I25.10 Atherosclerotic heart disease of native coronary artery without angina pectoris; I73.9 Peripheral vascular disease, unspecified; Z99.2 Dependence on renal dialysis; Z95.1 Presence of aortocoronary bypass graft; Z92.21 Personal history of antineoplastic chemotherapy; Z95.828 Presence of other vascular implants and grafts; Z85.46 Personal history of malignant neoplasm of prostate; Z92.3 Personal history of irradiation; Z86.73 Personal history of transient ischemic attack (TIA), and cerebral infarction without residual deficits; Z20.822 Contact with and (suspected) exposure to COVID-19; C61 Malignant neoplasm of prostate
CPT/HCPCS: G0378; P9016

== ENCOUNTER 2020-10-31 22:32 | Emergency (ER) | payer MEDICARE, OTHER ==
[~2020-10-31] VITALS: Ht 167.6 cm; Wt 68.0 kg
[~2020-10-31 22:32] MED LIST changes: +ASPIRIN 81 LOW81 MG PO; +CALCITRIOL0.25 MC1 PO; +MIDODRINE10 MG PO; +NORVASC5 M1 PO; +SEVELAMER HYDR800 MG PO; +VANCOMYCIN HCL125 M1 PO; +VITAMIN B-122500 MCG PO; +[UNRECOGNIZED DRUG - OTHER] PO
[2020-10-31 23:25] LABS: HEMATOCRIT 30.4 % (39.0-50.0); HEMOGLOBIN 8.6 g/dl (14.0-18.0); IMMATURE GRANULOCYTES 0.1 % (0.0-5.0); MEAN CELL VOLUME 101.3 fL CALC (80.0-100.0); MEAN CORPUSCULAR HGB 28.7 pG CALC (26.0-32.0); MEAN CORPUSCULAR HGB CONC 28.3 g/dL CAL (32.0-36.0); NEUT# 5.17 thou/uL (1.82-7.42); RED CELL DISTRI WIDTH 18.4 % (11.5-15.5)
[2020-10-31 23:50] LABS: ALBUMIN 2.3 g/dL (3.2-5.0); BILIRUBIN, TOTAL 0.4 mg/dL (0.0-1.4); POTASSIUM 4.6 mmol/l (3.5-5.1); TOTAL PROTEIN 5.4 g/dL (6.3-8.2)
[2020-10-31] MEDS ORDERED: FERROUS SULF325 M2 PO (23:52)
[2020-10-31] MEDS ORDERED: EPOGEN20000 UNIT (23:53)
[2020-10-31 23:55] LABS: CREATININE 9.2 mg/dL (0.7-1.3)
[2020-11-01 06:05] VITALS: BP 132/70
== END 2020-11-01 06:05 | disposition short-term general hospital (02) ==
LOC: ED 22:32
PROVIDERS: Emergency Medicine
DX: J18.9 Pneumonia, unspecified organism (principal); I12.0 Hypertensive chronic kidney disease with stage 5 chronic kidney disease or end stage renal disease; N18.6 End stage renal disease; D63.1 Anemia in chronic kidney disease; Z99.2 Dependence on renal dialysis; Z95.1 Presence of aortocoronary bypass graft; Z86.73 Personal history of transient ischemic attack (TIA), and cerebral infarction without residual deficits; Z20.822 Contact with and (suspected) exposure to COVID-19